=== PATIENT | male | born 1955 | race Caucasian/White ===

== ENCOUNTER → 2019-09-18 | Outpatient (CLI) | payer OTHER, MEDICARE ==
[~2019-09-18] MED LIST: ACETAMINOPHEN325 M1 PO; ALPRAZOLAM 0.0.25 M1 PO; ASPIRIN325 PO; BACLOFEN 10MG T10 M1 PO; COQ-10100 MG PO; EFFIENT10 MG PO; FLOMAX0.4 MG PO; HYDROCODON-ACE1 EAC7 PO; LIPITOR 10 MG10 M1 PO; LYRICA 75 MG CA75 MG PO; METOPROLOL TART25 MG PO; MOBIC15 MG PO; OMEPRAZOLE40 MG PO; PREVACID 30MG C30 M1 PO; TOPROL XL25 MG PO; UNICOMPLEX M TA1 TA1 PO; WELCHOL 625 MG625 MG PO
== END ==
LOC: SJCVC 13:06
PROVIDERS: ATTEND Internal Medicine
DX: I44.0 Atrioventricular block, first degree (principal); I25.10 Atherosclerotic heart disease of native coronary artery without angina pectoris; E78.5 Hyperlipidemia, unspecified; I10 Essential (primary) hypertension; E78.00 Pure hypercholesterolemia, unspecified; K58.8 Other irritable bowel syndrome; K21.9 Gastro-esophageal reflux disease without esophagitis; Z79.82 Long term (current) use of aspirin; Z79.899 Other long term (current) drug therapy; Z82.49 Family history of ischemic heart disease and other diseases of the circulatory system; Z98.61 Coronary angioplasty status

== ENCOUNTER → 2020-09-17 | Outpatient (CLI) | payer OTHER | LOC: SJCVCIMAG 08:08 | PROVIDERS: ATTEND Internal Medicine | DX: I49.3 Ventricular premature depolarization (principal); I25.10 Atherosclerotic heart disease of native coronary artery without angina pectoris; E78.5 Hyperlipidemia, unspecified; R07.89 Other chest pain; R06.00 Dyspnea, unspecified; I10 Essential (primary) hypertension; Z88.8 Allergy status to other drugs, medicaments and biological substances; E78.00 Pure hypercholesterolemia, unspecified; Z90.49 Acquired absence of other specified parts of digestive tract; Z95.5 Presence of coronary angioplasty implant and graft; Z98.890 Other specified postprocedural states; Z79.82 Long term (current) use of aspirin; Z79.899 Other long term (current) drug therapy; Z82.49 Family history of ischemic heart disease and other diseases of the circulatory system ==